=== PATIENT | male | born 1960 | race Caucasian/White ===

== ENCOUNTER 2018-07-01 07:10 | Day surgery (SDC) | payer OTHER ==
[~2018-07-01] VITALS: Ht 170.2 cm; Wt 70.0 kg
[2018-07-01 07:52] VITALS: Ht 170.2 cm; Wt 70.0 kg
[2018-07-01 07:56] VITALS: BP 169/116; PULSE 81; RESP 16
[2018-07-01] MEDS ORDERED: CARV12.579 PO (07:58)
[2018-07-01] MEDS ORDERED: ERGO500013 PO (07:59)
[2018-07-01] MEDS ORDERED: HYDR-3672 PO (07:59)
[2018-07-01] MEDS ORDERED: LABE100T7 PO (08:00)
[2018-07-01] MEDS ORDERED: COLC0.6T6 PO (08:00)
[2018-07-01] MEDS ORDERED: FER325 PO (08:00)
[2018-07-01] MEDS ORDERED: CLON-379 PO (08:01)
[2018-07-01] MEDS ORDERED: PRAV40TA76 PO (08:01)
[2018-07-01] MEDS ORDERED: MIDAZOLAM 1 MG/ML 2 ML INJ ONE (08:41)
[2018-07-01] MEDS ORDERED: FENTAnyl 50 MCG/ML VIAL ONE (08:41)
[2018-07-01] MEDS ORDERED: HEPARIN 1000 UNITS/ML 10 ML INJ ONE (08:41)
[2018-07-01] MEDS ORDERED: LIDOCAINE 1% (MDV) 20 ML INJ ONE ×2 (08:41→08:50)
--- NOTE | 2018-07-01 08:56 | SIPON ---
Date/Time of Note Date/Time of Note DATE: 07/01/18 TIME: 08:55 Operative Report Preoperative Diagnosis ESRD Postoperative Diagnosis Same Operation/Procedure Performed PermaCATH EXCHANGE. Surgeon see signature line programs assistant NONE Anesthesia: other (local) Estimated blood loss: none Transfusion Required none Specimen culture. Grafts/Implants none Complications none CARI VEGA MD July 01, 2018 08:56
[2018-07-01 09:20] VITALS: BP 166/110; PULSE 87; RESP 14
--- NOTE | 2018-07-01 19:42 | OPR ---
DATE OF OPERATION: PREOPERATIVE DIAGNOSIS: End-stage renal disease. POSTOPERATIVE DIAGNOSIS: End-stage renal disease. PROCEDURE: Exchange of right IJ Perm-A-Cath. SURGEON: Vida Hughes MD SUPERVISOR SHEARING: None. ANESTHESIA: Local infiltration with 1% lidocaine. INDICATION OF THE PROCEDURE: The patient is a 58-year-old male with end-stage renal disease. He is receiving hemodialysis through a right IJ Perm-A-Cath that became malfunctioning. Above-mentioned pr ocedure discussed with the patient and his family. They understood and agreed to proceed. DESCRIPTION OF PROCEDURE: The patient was brought to the catheterization lab after obtaining informe d consent. The right chest and the catheter were cleaned, prepped and draped in regular sterile ec[facility] health ion. Local anesthetic was infiltrated ____ skin, subcutaneous tissue around the catheter using a sma ll mosquito clamp. The adhesion between the cuff and the subcutaneous tissue were taken down. A elvia dewire was placed down the catheter. The catheter was removed carefully and tip of the catheter was sent for culture. A catheter was placed over the wire into the SVC and the wire was removed. Good f low was achieved in both ports. They were flushed with normal saline and then straight heparin was p laced in each port. Catheter was secured to the skin at the exit site with 3-0 nylon suture. Dressi ng was applied. The patient was transferred to recovery in stable condition. Dictated By: VIDA OAKES/KAELA Conf#: [id number] DID#: [id number]
== END 2018-07-01 09:48 | disposition home or self-care (01) ==
LOC: CCL 07:10 → SDS 07:10 → CCL 09:48
PROVIDERS: ATTEND Surgery
DX: T82.49XA Other complication of vascular dialysis catheter, initial encounter (principal); Y82.8 Other medical devices associated with adverse incidents; Y84.1 Kidney dialysis as the cause of abnormal reaction of the patient, or of later complication, without mention of misadventure at the time of the procedure; I12.0 Hypertensive chronic kidney disease with stage 5 chronic kidney disease or end stage renal disease; N18.6 End stage renal disease
CPT/HCPCS: 36582; 84132; J1644; Z7610; J2250; J3010

== ENCOUNTER 2018-07-17 10:10 | Day surgery (SDC) | payer OTHER ==
[~2018-07-17] VITALS: Ht 167.6 cm; Wt 70.2 kg
[~2018-07-17 10:10] MED LIST: CARV12.579 PO; CLON-379 PO; COLC0.6T6 PO; ERGO500013 PO; FER325 PO; HYDR-3672 PO; LABE100T7 PO; LIDOCAINE 2% (SDV) 5 ML INJ ONE; PRAV40TA76 PO
[2018-07-17 11:35] VITALS: Ht 167.6 cm; Wt 70.2 kg
[2018-07-17 12:05] VITALS: BP 158/94; PULSE 72; RESP 18
--- NOTE | 2018-07-17 12:19 | PREAC ---
Date/Time of Note Date/Time of Note DATE: 07/17/18 TIME: 12:17 Anesthesia Eval and Record Evaluation Time Pre-Procedure Interview DATE: 07/17/18 TIME: 12:17 Age 58 Sex male NPO: 8 hrs Preoperative diagnosis gi bleeing Planned procedure colonoscopy Past Medical History Past Medical History: Includes Cardio: HTN, Dyslipidemia Pulm: Smoking Hx Renal: ESRD on dialysis Surgery & Anesthesia Issues No known issue Meds Anticoagulation: No Beta Stephen within 24 hr: Yes Reported Medications Clonidine Hcl* (Clonidine Hcl*) 0.1 Mg Tab, 0.1 MG PO BID PRN for BLOOD PRESSURE SUPPORT, TAB 07/01/18 Pravastatin Sodium* (Pravastatin Sodium*) 40 Mg Tablet, 40 MG PO HS, TAB 07/01/18 Ferrous Sulfate* (Ferrous Sulfate*) 325 Mg Tabec, 325 MG PO TID, TAB 07/01/18 Labetalol Hcl* (Labetalol Hcl*) 100 Mg Tablet, 100 MG PO BID, TAB 07/01/18 Colchicine* (Colcrys*) 0.6 Mg Tablet, 0.6 MG PO BID, TAB 07/01/18 Ergocalciferol (Vitamin D2) (VITAMIN D2) 50,000 Unit Capsule, 73942 UNIT PO EVERY SATURDAY, CAP 07/01/18 Hydralazine Hcl* (Hydralazine Hcl*) 50 Mg Tab, 50 MG PO BID PRN for BLOOD PRESSURE SUPPORT, #60 TAB 07/01/18 Carvedilol* (Carvedilol*) 12.5 Mg Tablet, 12.5 MG PO BID, #60 TAB 07/01/18 Meds reviewed: Yes Allergies Coded Allergies: No Known Drug Allergies (Verified Allergy, Unknown, 07/01/18) Allergies Reviewed: Yes Labs/Studies Labs Reviewed: Reviewed by anesthesiologist test: N/A Pre-procedure Exam Last vitals Vital Signs Date Temp Pulse Resp B/P (MAP) Pulse Ox O2 O2 Flow FiO2 Time Delivery Rate 07/17/18 98.4 72 18 158/94 97 Room Air 12:05 (115) Airway: Adequate mouth opening, Adequate thyromental dist Mallampati: Mallampati III Teeth: Normal Lung: Normal Heart: Normal ASA Physical Status ASA physical status: 4 Emergency: None Pre-operative Attestations Prior to commencing anesthesia and surgery, the patient was re-evaluated, there was verification of: *The patient's identity *The results of appropriate recent lab work and preoperative vital signs *The above evaluation not changing prior to induction *Anesthetic plan, risk benefits, alternative and complications discussed with patient/family; questions answered; patient/family understands, accepts and wishes to proceed. REBECCA DEUTSCH DO Jul 17, 2018 12:19
[2018-07-17] MEDS ORDERED: FENTAnyl 50 MCG/ML VIAL ONE (12:23)
[2018-07-17] MEDS ORDERED: PROPOFOL 20 ML ONE (12:23)
[2018-07-17] MEDS ORDERED: MIDAZOLAM 1 MG/ML 2 ML INJ ONE (12:24)
--- NOTE | 2018-07-17 13:08 | PAC ---
Date/Time of Note Date/Time of Note DATE: 07/17/18 TIME: 13:08 Post-Anesthesia Notes Post-Anesthesia Note Last documented vital signs Vital Signs Date Temp Pulse Resp B/P (MAP) Pulse Ox O2 O2 Flow FiO2 Time Delivery Rate 07/17/18 97.9 72 18 130/75 97 Room Air 1305 Activity: WNL Respiratory function: WNL Cardiovascular function: WNL Mental status: Baseline Pain reasonably controlled: Yes Hydration appropriate: Yes Nausea/Vomiting absent: Yes REBECCA DEUTSCH DO Jul 17, 2018 13:08
== END 2018-07-17 15:05 | disposition home or self-care (01) ==
LOC: GIL 10:10
PROVIDERS: ATTEND Internal Medicine Gastroenterology
DX: K64.8 Other hemorrhoids (principal); D12.0 Benign neoplasm of cecum; K64.4 Residual hemorrhoidal skin tags; D50.9 Iron deficiency anemia, unspecified; I12.0 Hypertensive chronic kidney disease with stage 5 chronic kidney disease or end stage renal disease; N18.6 End stage renal disease; Z99.2 Dependence on renal dialysis; Z87.891 Personal history of nicotine dependence
CPT/HCPCS: 45380; 84132; 88305; J2250; J3010; Z7610

== ENCOUNTER 2018-08-26 09:26 | Day surgery (SDC) | payer OTHER ==
[2018-08-25 16:57] VITALS: Ht 172.7 cm; Wt 67.6 kg
[~2018-08-26] VITALS: Ht 172.7 cm; Wt 67.6 kg
[2018-08-26] VITALS (14 sets, daily range): BP systolic 144–163; BP diastolic 83–119; PULSE 72–80; RESP 12–24
[~2018-08-26 09:26] MED LIST changes: -LIDOCAINE 2% (SDV) 5 ML INJ ONE
--- NOTE | 2018-08-26 10:04 | HPN ---
Date/Time of Note Date/Time of Note DATE: 08/26/18 TIME: 10:04 Interval H&P Admission Note Pt. seen H&P reviewed: No system changes CARI VEGA MD Aug 26, 2018 10:04
[2018-08-26] MEDS ORDERED: LIDOCAINE 1% (MPF) 30 ML INJ ONE (10:56)
[2018-08-26] MEDS ORDERED: BUPIVACAINE 0.25% (MPF) 30 ML INJ ONE (10:56)
[2018-08-26] MEDS ORDERED: GELATIN SIZE 100 SPONGE ONE (10:56)
[2018-08-26] MEDS ORDERED: THROMBIN 5000 UNIT VIAL ONE (10:56)
[2018-08-26] MEDS ORDERED: HEPARIN 1000 UNITS/ML 10 ML INJ ONE (10:57)
[2018-08-26] MEDS ORDERED: SOD CHLORIDE 0.9% 500 ML IV SCH (11:00)
[2018-08-26] MEDS ORDERED: SEVOFLURANE 15 MIN ONE (11:00)
[2018-08-26] MEDS ORDERED: PROPOFOL 200 MG INJ ONE (11:00)
[2018-08-26] MEDS ORDERED: HEPARIN 1000 UNITS/ML 10 ML INJ IRR ONE (11:05)
--- NOTE | 2018-08-26 11:09 | PREAC ---
Date/Time of Note Date/Time of Note DATE: 08/26/18 TIME: 11:08 Anesthesia Eval and Record Evaluation Time Pre-Procedure Interview DATE: 08/26/18 TIME: 11:08 Age 58 Sex male NPO: 8 hrs Preoperative diagnosis ESRD Planned procedure AV fistula creation Past Medical History Past Medical History: Includes Cardio: HTN, CHF Neuro: CVA Renal: ESRD on dialysis Heme: Anemia Surgery & Anesthesia Issues No known issue Meds Anticoagulation: No Beta Stephen within 24 hr: Yes Reason Beta Stephen not given: Pt. not on B-Stephen Reported Medications Clonidine Hcl* (Clonidine Hcl*) 0.1 Mg Tab, 0.1 MG PO BID PRN for BLOOD PRESSURE SUPPORT, TAB 07/01/18 Pravastatin Sodium* (Pravastatin Sodium*) 40 Mg Tablet, 40 MG PO HS, TAB 07/01/18 Ferrous Sulfate* (Ferrous Sulfate*) 325 Mg Tabec, 325 MG PO TID, TAB 07/01/18 Labetalol Hcl* (Labetalol Hcl*) 100 Mg Tablet, 100 MG PO BID, TAB 07/01/18 Colchicine* (Colcrys*) 0.6 Mg Tablet, 0.6 MG PO BID, TAB 07/01/18 Ergocalciferol (Vitamin D2) (VITAMIN D2) 50,000 Unit Capsule, 54899 UNIT PO EVERY SATURDAY, CAP 07/01/18 Hydralazine Hcl* (Hydralazine Hcl*) 50 Mg Tab, 50 MG PO BID PRN for BLOOD PRESSURE SUPPORT, #60 TAB 07/01/18 Carvedilol* (Carvedilol*) 12.5 Mg Tablet, 12.5 MG PO BID, #60 TAB 07/01/18 Current Medications Sodium Chloride 500 ml @ 25 mls/hr Q20H IV ; Start 08/26/18 at 11:00 Meds reviewed: Yes Allergies Coded Allergies: No Known Drug Allergies (Verified Allergy, Unknown, 08/26/18) Allergies Reviewed: Yes Labs/Studies Labs Reviewed: Reviewed by anesthesiologist Result Diagram: 08/26/18 1035 Laboratory Tests 08/26/18 10:35 test: N/A Pre-procedure Exam Last vitals Vital Signs Date Temp Pulse Resp B/P (MAP) Pulse Ox O2 O2 Flow FiO2 Time Delivery Rate 08/26/18 98.8 80 16 147/94 97 Room Air 10:52 (111) Airway: Adequate mouth opening, Adequate thyromental dist Mallampati: Mallampati IV Teeth: Abnormal (none ) Lung: Normal Heart: Normal ASA Physical Status ASA physical status: 4 Emergency: None Pre-operative Attestations Prior to commencing anesthesia and surgery, the patient was re-evaluated, there was verification of: *The patient's identity *The results of appropriate recent lab work and preoperative vital signs *The above evaluation not changing prior to induction *Anesthetic plan, risk benefits, alternative and complications discussed with patient/family; questions answered; patient/family understands, accepts and wishes to proceed. REBECCA DEUTSCH DO Aug 26, 2018 11:09
[2018-08-26] MEDS ORDERED: ROPIVACAINE 0.5 % 30 ML VIAL ONE (11:12)
[2018-08-26] MEDS ORDERED: LIDOCAINE 2% (SDV) 5 ML INJ ONE (11:12)
[2018-08-26] MEDS ORDERED: hydrALAzine 20 MG INJ IV PRN (11:30)
[2018-08-26] MEDS ORDERED: LABETALOL HCL 20MG INJ IV PRN (11:30)
[2018-08-26] MEDS ORDERED: HYDROmorphONE 1 MG/5 ML IV SYRINGE IV PRN ×3 (11:30)
[2018-08-26] MEDS ORDERED: CEFAZOLIN 1 GM INJ ONE (11:34)
[2018-08-26] MEDS ORDERED: DEXAMETHASONE 4 MG/ML 5 ML INJ ONE (11:36)
[2018-08-26] MEDS ORDERED: ONDANSETRON 4 MG INJ ONE (11:36)
--- NOTE | 2018-08-26 12:14 | SIPON ---
Date/Time of Note Date/Time of Note DATE: 08/26/18 TIME: 12:13 Operative Report Preoperative Diagnosis ESRD Postoperative Diagnosis SAME Operation/Procedure Performed CONSTRUCTION OF LEFT DEAN AVF Surgeon see signature line assistant community director NONE Anesthesia: general Estimated blood loss: minimal Transfusion Required none Specimen NONE Grafts/Implants none Complications none CARI VEGA MD Aug 26, 2018 12:14
--- NOTE | 2018-08-26 12:26 | PAC ---
Date/Time of Note Date/Time of Note DATE: 08/26/18 TIME: 12:25 Post-Anesthesia Notes Post-Anesthesia Note Last documented vital signs Vital Signs Date Temp Pulse Resp B/P (MAP) Pulse Ox O2 O2 Flow FiO2 Time Delivery Rate 08/26/18 98 80 16 125/62 97 Room Air 1225 Activity: WNL Respiratory function: WNL Cardiovascular function: WNL Mental status: Baseline Pain reasonably controlled: Yes Hydration appropriate: Yes Nausea/Vomiting absent: Yes REBECCA DEUTSCH DO Aug 26, 2018 12:26
--- NOTE | 2018-08-26 16:54 | OPR ---
DATE OF OPERATION: 08/26/2018 PREOPERATIVE DIAGNOSIS: End-stage renal disease. POSTOPERATIVE DIAGNOSIS: End-stage renal disease. OPERATION PERFORMED: Construction of Dre AV fistula. SURGEON: Vida Hughes MD RN HEMODIALYSIS: None. ANESTHESIA: Block and general by. Dr. Grady. INDICATION OF THE PROCEDURE: The patient is a 58-year-old male with end-stage renal disease who will require long-term hemodialysis access. Above-mentioned procedure was discussed with him. He unders tood and agreed to proceed. DESCRIPTION OF PROCEDURE: The patient was brought to the operating room after informed consent, plac ed in supine position on the operating table. Block was administered. The patient then had LMA plac ed and incision was clean, prepped and draped in a sterile fashion. A vertical incision in the anter olateral aspect of the distal left forearm was done using 15 blade scalpel, taken down through subcut aneous tissue using the Bovie. Using sharp dissection with Metzenbaum scissors, cephalic vein was di ssected circumferentially, ligated distally with 3-0 silk suture and transected. The vein was dilate d up to 3.5 mm with coronary dilator. There was no difficulty. The radial artery was exposed throug h the same incision, controlled proximally and distally with vascular bulldog clamps. A longitudinal arteriotomy was then done using 11 blade scalpel and Quinteros scissors. The end of the vein was tailor ed in the usual fashion. An end-to-side anastomosis was then established using 6-0 Prolene suture in a continuous running technique. Prior to completion of suture line, retrograde antegrade flush of t he lumens of the suture line was completed. Hemostasis of the suture line was achieved using Gelfoam thrombin. The patient had very strong palpable thrill along the length of the cephalic vein. Subcu taneous tissue was then closed using 3-0 Vicryl sutures. The edges of skin approximated with 4-0 Mon ocryl in subcuticular fashion. Steri-Strips were applied as a dry dressing. The patient was then ex tubated successfully, transferred to recovery in stable condition. Dictated By: VIDA OAKES/KAELA Conf#: [id number] DID#: [id number]
== END 2018-08-26 14:10 | disposition home or self-care (01) ==
LOC: SDS 09:26
PROVIDERS: ATTEND Surgery
DX: I12.0 Hypertensive chronic kidney disease with stage 5 chronic kidney disease or end stage renal disease (principal); N18.6 End stage renal disease; D64.9 Anemia, unspecified; Z99.2 Dependence on renal dialysis; E78.5 Hyperlipidemia, unspecified
CPT/HCPCS: 36830; 71045; 80053; 85025; 85610; 85730; 93005; J0690; J1100; J1170; J1644; J2405; J2795; Z7512; Z7610